=== PATIENT | male | born 1995 ===

== ENCOUNTER 2017-10-17 16:39 | Emergency (ER) | payer OTHER ==
[~2017-10-17] VITALS: Ht 177.8 cm; Wt 80.4 kg
[2017-10-17 16:41] VITALS: TEMP 37.1; Ht 177.8 cm; Wt 80.4 kg
[2017-10-17] MEDS ORDERED: KETOROLAC TROMETHAMINE 30 MG/ML VIAL IV STA (16:57)
[2017-10-17 17:25] LABS: BASO % 1.1 %; BASO ABS # 0.11 K/uL (0-0.2); EOS % 17.7 %; EOS ABS # 1.81 K/uL (0-0.5); HEMATOCRIT 43.8 % (42-52); HEMOGLOBIN 15.1 g/dL (14.0-18.0); IG# 0.02 K/uL (0.00-0.02); LYMPH % 27.7 %; LYMPH ABS # 2.84 K/uL (1.2-3.4); MEAN CELL VOLUME 85.9 fL (80-100); MEAN CORPUSCULAR HEMOGLOBIN 29.6 pg (25-34); MEAN CORPUSCULAR HGB CONC 34.5 g/dl (32-36); MEAN PLATELET VOLUME 9.4 fL (7.4-10.4); MONO ABS # 0.92 K/uL (0.11-0.59); NEUT % 44.3 %; NEUT ABS # 4.54 K/uL (1.4-6.5); PLATELET COUNT 303 K/uL (130-400); RED CELL DISTRIBUTION WIDTH CV 13.4 % (11.5-14.5); RED CELL DISTRIBUTION WIDTH SD 42.2 fL (36.4-46.3); WHITE BLOOD COUNT 10.24 K/uL (4.8-10.8)
--- NOTE | 2017-10-17 17:37 | DIAGNOSTIC IMAGING REPORT ---
CHEST ONE VIEW PORTABLE HISTORY: Atypical Chest Pain COMPARISON: None. FINDINGS: The lungs are clear. The heart is normal in size. No pleural effusions. No pneumothorax. Borderline elevation of the right hemidiaphragm. IMPRESSION: Borderline elevation of the right hemidiaphragm. Otherwise, no acute process within the chest. Electronically signed by: Jose Alston M.D. 10/17/2017 5:36 PM Dictated Date/Time: 10/17/2017 5:35 PM
[2017-10-17 17:41] LABS: BLOOD UREA NITROGEN 11 mg/dl (7-18); CALCIUM 8.6 mg/dl (8.5-10.1); CARBON DIOXIDE 27 mmol/L (21-32); CREATININE 1.04 mg/dl (0.60-1.40); GLUCOSE 90 mg/dl (70-99); SODIUM 139 mmol/L (136-145)
[2017-10-17] MEDS ORDERED: DUPI300I INJ (18:00)
[2017-10-17 18:31] VITALS: BP 110/73; PULSE 68; O2SAT 96
--- NOTE | 2017-10-17 21:45 | EMERGENCY ROOM VISIT NOTE ---
History Report prepared by Scribe: Mihaela Curran Under the Supervision of: Dr. Perez Mike D.O. First contact with patient: 16:43 Chief Complaint: CARDIAC ASSESSMENT Stated Complaint: HEAVY CHEST History of Present Illness The patient is a 22 year old male who presents to the Emergency Room with complaints of persistent chest pain. He states his chest has felt "heavy" since yesterday. Nothing seems to make it better or worse. Exertion has not worsened his symptoms. He admits to a history of asthma and is a current smoker. No arm or jaw pain. No nausea. Patient denies diabetes, hypertension, hyperlipidemia , CAD, history of sudden at a young age, swelling of calves, recent trips , history of immobilization or recent surgery, prior history of DVT, hemoptysis or history of malignancy. The patient also denies any headache, change in vision , fevers, cough, shortness of breath, nausea, vomiting, diarrhea, pain with urination, and melena. Source of History: patient Onset: yesterday Position: chest Quality: other ("heaviness") Timing: other (persistent) Associated Symptoms: No fevers, No headache, No cough, No SOB, No nausea, No vomiting, No melena, No diarrhea, No urinary symptoms Review of Systems See HPI for pertinent positives & negatives. A total of 10 systems reviewed and were otherwise negative. Past Medical & Surgical Medical Problems: (1) Asthma Social History Smoking Status: Current Every Day Smoker Alcohol Use: occasionally Drug Use: none Marital Status: single Housing Status: lives with roommate Occupation Status: [employer] Current/Historical Medications Scheduled Dupilumab (Dupixent), 1 DOSE INJ 2XWK Allergies Coded Allergies: No Known Allergies (Unverified , 10/17/17) Physical Exam Vital Signs Date Time Temp Pulse Resp B/P (MAP) Pulse Ox O2 Delivery O2 Flow Rate FiO2 10/17/17 18:31 68 18 110/73 96 Room Air 10/17/17 17:29 72 10/17/17 17:13 96 Room Air 10/17/17 16:41 37.1 83 17 128/82 97 Room Air Physical Exam GENERAL: Sitting up in bed, alert, well appearing, well nourished, no distress, non-toxic EYE EXAM: normal conjunctiva. OROPHARYNX: no exudate, no erythema, lips, buccal mucosa, and tongue normal and mucous membranes are moist NECK: supple, no nuchal rigidity, no adenopathy, non-tender LUNGS: Clear to auscultation. Normal chest wall mechanics HEART: no murmurs, S1 normal and S2 normal ABDOMEN: abdomen soft, non-tender, normo-active bowel sounds, no masses, no rebound or guarding. BACK: Back is symmetrical on inspection and there is no deformity, no midline tenderness, no CVA tenderness. SKIN: no rashes and no bruising UPPER EXTREMITIES: Radial pulse equal bilaterally. LOWER EXTREMITIES: Calves are equal bilaterally. No pitting edema. NEURO EXAM: Normal sensorium, cranial nerves II-XII grossly intact, normal speech, no gross weakness of arms, no gross weakness of legs. Gross sensation intact. Medical Decision & Procedures ER Provider Diagnostic Interpretation: Radiology results as stated below per my review and the radiologist's interpretation: CHEST ONE VIEW PORTABLE HISTORY: Atypical Chest Pain COMPARISON: None. FINDINGS: The lungs are clear. The heart is normal in size. No pleural effusions. No pneumothorax. Borderline elevation of the right hemidiaphragm. IMPRESSION: Borderline elevation of the right hemidiaphragm. Otherwise, no acute process within the chest. Electronically signed by: Jose Alston M.D. 10/17/2017 5:36 PM Laboratory Results 10/17/17 17:15 Red Blood Count 5.10, Mean Corpuscular Volume 85.9, Mean Corpuscular Hemoglobin 29.6, Mean Corpuscular Hemoglobin Concent 34.5, Mean Platelet Volume 9.4, Neutrophils (%) (Auto) 44.3, Lymphocytes (%) (Auto) 27.7, Monocytes (%) (Auto) 9.0, Eosinophils (%) (Auto) 17.7, Basophils (%) (Auto) 1.1, Neutrophils # (Auto ) 4.54, Lymphocytes # (Auto) 2.84, Monocytes # (Auto) 0.92, Eosinophils # (Auto ) 1.81, Basophils # (Auto) 0.11 10/17/17 17:15 Test 10/17/17 17:15 10/17/17 17:56 White Blood Count 10.24 K/uL (4.8-10.8) Red Blood Count 5.10 M/uL (4.7-6.1) Hemoglobin 15.1 g/dL (14.0-18.0) Hematocrit 43.8 % (42-52) Mean Corpuscular Volume 85.9 fL (80-100) Mean Corpuscular Hemoglobin 29.6 pg (25-34) Mean Corpuscular Hemoglobin Concent 34.5 g/dl (32-36) Platelet Count 303 K/uL (130-400) Mean Platelet Volume 9.4 fL (7.4-10.4) Neutrophils (%) (Auto) 44.3 % Lymphocytes (%) (Auto) 27.7 % Monocytes (%) (Auto) 9.0 % Eosinophils (%) (Auto) 17.7 % Basophils (%) (Auto) 1.1 % Neutrophils # (Auto) 4.54 K/uL (1.4-6.5) Lymphocytes # (Auto) 2.84 K/uL (1.2-3.4) Monocytes # (Auto) 0.92 K/uL (0.11-0.59) Eosinophils # (Auto) 1.81 K/uL (0-0.5) Basophils # (Auto) 0.11 K/uL (0-0.2) RDW Standard Deviation 42.2 fL (36.4-46.3) RDW Coefficient of Variation 13.4 % (11.5-14.5) Immature Granulocyte % (Auto) 0.2 % Immature Granulocyte # (Auto) 0.02 K/uL (0.00-0.02) Anion Gap 7.0 mmol/L (3-11) Est Creatinine Clear Calc Drug Dose 115.0 ml/min Estimated GFR () 117.6 Estimated GFR (Non- 101.4 BUN/Creatinine Ratio 10.6 (10-20) Calcium Level 8.6 mg/dl (8.5-10.1) Troponin I < 0.015 ng/ml (0-0.045) D-Dimer < 190 ug/L FEU (0-500) Laboratory results per my review. Medications Administered Medications (Trade) Dose Ordered Sig/Buthc Route Start Time Stop Time Status Last Admin Dose Admin Ketorolac Tromethamine (Toradol Inj) 30 mg NOW STAT IV 10/17/17 16:57 10/17/17 16:58 DC 10/17/17 17:12 30 MG ECG Per My Interpretation Indication: chest pain Rate (beats per minute): 69 Rhythm: normal sinus Findings: no ectopy, other (normal axis) ED Course ED COURSE: Vital signs were reviewed and showed normal vital signs. The patients medical record was reviewed The above diagnostic studies were performed and reviewed. ED treatments and interventions as stated above. 165: The patient was evaluated in room C6. A complete history and physical examination was performed. 165: Toradol 30 mg IV. 1849: Upon reevaluation, the patient is felling well and resting. I discussed my findings with the patient and he understands and agrees with the treatment plan. Based on the patients age, coexisting illnesses, exam and lab findings the decision to treat as an outpatient was made. The patient remained stable while under my care. The patient appeared well at the time of discharge. Medical Decision Differential diagnoses includes but is not limited to acute coronary syndrome, myocardial infarction, pericarditis, pulmonary embolus, aortic dissection, pneumonia, pneumothorax, musculoskeletal, shingles, esophageal. Patient is a 22-year-old male who presents the ER for chest pain which is been present since yesterday. No exacerbating or remitting factors. No cardiac or PE risk factors with the exception of a smoker. CBC along with BMP, troponin and d-dimer were negative with pain present greater than 8 hours. EKG unremarkable. Chest x-ray unremarkable. Patient was updated at bedside. He was discharged follow-up with PCP as an outpatient. I do not believe that this is cardiac in nature. Radial pulses were normal and chest x-ray unremarkable not suggesting dissection. Low risk for PE. Discussed with Pt concerning signs and symptoms to watch out for. Pt was instructed to follow up with their PCP and discussed with the patient their option to return to the ED at anytime for persistent or worsening symptoms. The appropriate anticipatory guidance and out- patient management, including indications for return to the emergency department , were explained at length to the patient and understood. Medication Reconcilliation Current Medication List: was personally reviewed by me Blood Pressure Screening Patient's blood pressure: Normal blood pressure Blood pressure disposition: Did not require urgent referral Impression Primary Impression: Chest pain Scribe Attestation The scribe's documentation has been prepared under my direction and personally reviewed by me in its entirety. I confirm that the note above accurately reflects all work, treatment, procedures, and medical decision making performed by me. Departure Information Dispostion Home / Self-Care Referrals No Doctor, Assigned (PCP) Patient Instructions Chest Pain - [facility], [facility] Additional Instructions Please follow up with your primary care doctor with in the next 24 hours. Any worsening of your symptoms, please return to the ED immediately. This includes any fevers greater than 100.4, worsening pain, chest pain, shortness breath, persistent nausea, vomiting, unable to eat or drink, or any other concerning signs or symptoms from your standpoint. Please take Tylenol or Motrin as needed for pain. Problem Qualifiers Primary Impression: Chest pain Chest pain type: unspecified Qualified Codes: R07.9 - Chest pain, unspecified
== END 2017-10-17 18:53 | disposition home or self-care (01) ==
LOC: C.EDB 16:40 → C.EDC 18:53
DX: R07.9 Chest pain, unspecified (principal); F17.200 Nicotine dependence, unspecified, uncomplicated; J45.909 Unspecified asthma, uncomplicated

== ENCOUNTER 2017-11-27 12:32 | Emergency (ER) | payer OTHER ==
[~2017-11-27] VITALS: Ht 175.3 cm; Wt 80.1 kg
[~2017-11-27 12:32] MED LIST: DUPI300I INJ
[2017-11-27 12:36] VITALS: TEMP 36.9; Ht 175.3 cm; Wt 80.1 kg
--- NOTE | 2017-11-27 13:16 | EMERGENCY ROOM VISIT NOTE ---
History Report prepared by Oneyda: Dexter Thomason Under the Supervision of: Dr. Santana Cervantes M.D. First contact with patient: 12:45 Chief Complaint: CARDIAC ASSESSMENT Stated Complaint: WEIRD FEELING IN CHEST History of Present Illness The patient is a 22 year old male who presents to the Emergency Room with complaints of intermittent right sided chest discomfort beginning a few weeks ago. The patient states he was evaluated in the ED a few weeks ago. He reports he is experiencing similar symptoms to before. The patient notes he had scans that were negative, and he was told his heart was okay. He states since then, it has been more frequent. The patient reports he has not been evaluated by his PCP yet. He notes he occasionally smokes cigarettes, and he last smoked marijuana yesterday. The patient denies cough, recent travel, coughing up blood , fevers, taking steroids, and cocaine use. He notes a history of asthma and eczema. Source of History: patient Onset: a few weeks ago Position: chest (right) Timing: intermittent Associated Symptoms: No cough Note: Denies: recent travel, coughing up blood, fevers, taking steroids, and cocaine use Review of Systems See HPI for pertinent positives and negatives. A total of ten systems were reviewed and were otherwise negative. Past Medical & Surgical Medical Problems: (1) Asthma (2) Eczema Family History Patient reports no known family medical history. Social History Smoking Status: Current Some Day Smoker Alcohol Use: occasionally Drug Use: marijuana Marital Status: single Housing Status: lives with roommate Occupation Status: [employer] student Current/Historical Medications Scheduled Dupilumab (Dupixent), 1 DOSE INJ 2XWK Allergies Coded Allergies: No Known Allergies (Unverified , 11/27/17) Physical Exam Vital Signs Date Time Temp Pulse Resp B/P (MAP) Pulse Ox O2 Delivery O2 Flow Rate FiO2 11/27/17 13:42 63 18 118/65 94 Room Air 11/27/17 12:36 36.9 79 18 115/77 96 Room Air Physical Exam Physical Exam GENERAL: He is oriented to person, place, and time. He appears well-developed and well-nourished. He does not appear distressed. ____ HENT: Exam performed. Head: Normocephalic and atraumatic. Right Ear: External ear normal. No mastoid tenderness. Left Ear: External ear normal. No mastoid tenderness. Mouth/Throat: The oropharynx is clear and moist. No trismus in the jaw. No dental abscesses or uvula swelling. No oropharyngeal exudate or tonsillar abscesses. ____ EYES: Conjunctivae and EOM are normal. Pupils are equal, round, and reactive to light. Right eye exhibits no discharge. Left eye exhibits no discharge. No scleral icterus. ____ NECK: Normal range of motion. Neck supple. No JVD present. No spinous process tenderness present. No carotid bruit present. No rigidity. No tracheal deviation and normal range of motion present. No Brudzinski's sign and no Kernig 's sign noted. ____ CV: Normal rate, regular rhythm, normal heart sounds and intact distal pulses. There is no peripheral edema. Palpable radial pulses bue. ____ PULM/CHEST: Effort normal and breath sounds normal. No respiratory distress. No stridor. He has no wheezes. He has no rales. Chest Wall: He exhibits no tenderness. ____ ABD: The abdomen is soft. Bowel sounds are normal. He has no distension. No mass is present. There is no tenderness. There is no rebound, no guarding, no Kline's sign and no tenderness at McBurney's point. Rovsig negative MUSC/SKEL: Normal range of motion. There is no peripheral edema, tenderness or deformity. LYMPH: No cervical adenopathy. ____ NEURO: He is alert and oriented to person, place, and time. He has normal strength. No cranial nerve deficit or sensory deficit. Coordination and gait normal. GCS eye subscore is 4. GCS verbal subscore is 5. GCS motor subscore is 6. Cerebellar tests wnl. ____ SKIN: Skin is warm and dry. He is not diaphoretic. ____ PSYCH: He has a normal mood and affect. His behavior is normal. Judgment and thought content normal. ____ Medical Decision & Procedures ER Provider Diagnostic Interpretation: X-ray: Per my interpretation, radiologist review. TWO VIEW CHEST CLINICAL HISTORY: Right-sided chest pain. FINDINGS: PA and lateral chest radiographs are compared to study dated 10/17/2017. The cardiomediastinal silhouette is unremarkable. The lungs and pleural spaces are clear. There is no pneumothorax. The bony thorax appears intact. IMPRESSION: No active disease in the chest. Electronically signed by: Moy Brenner M.D. 11/27/2017 1:42 PM Dictated Date/Time: 11/27/2017 1:42 PM ECG Per My Interpretation Indication: chest pain Rate (beats per minute): 70 Rhythm: sinus with SA Findings: other (SC, QRS, and QTc are wnl. No ST depression or elevation.) ED Course 1313: The patient was evaluated in room B06. A complete history and physical exam was performed. Review of EMR shows the patient was evaluated on October 16 and had a negative chest x-ray. 1357: I reevaluated the patient. EKG and chest x-ray was negative. Repeat exam was negative. I advised him to stop smoking. DISCHARGE - Plan of care discussed with patient and questions answered. The patient was given both verbal and printed discharge instructions. The patient verbalized understanding and ability to comply. The patient is to seek outpatient follow up as noted in the discharge instructions. The patient verbalized understanding and ability to comply. The patient is discharged in stable condition. The patient was instructed to return for worsening symptoms. Medical Decision EKG and chest x-ray was negative. Repeat exam was negative. I advised him to stop smoking. DISCHARGE - Plan of care discussed with patient and questions answered. The patient was given both verbal and printed discharge instructions. The patient verbalized understanding and ability to comply. The patient is to seek outpatient follow up as noted in the discharge instructions. The patient verbalized understanding and ability to comply. The patient is discharged in stable condition. The patient was instructed to return for worsening symptoms. Medication Reconcilliation Current Medication List: was personally reviewed by me Blood Pressure Screening Patient's blood pressure: Normal blood pressure Blood pressure disposition: Did not require urgent referral Impression Primary Impression: Chest pain Additional Impression: Tobacco abuse Scribe Attestation The scribe's documentation has been prepared under my direction and personally reviewed by me in its entirety. I confirm that the note above accurately reflects all work, treatment, procedures, and medical decision making performed by me. The chart was completed utilizing [employer] voice recognition software. Grammatical errors, random word insertions, pronoun errors, and incomplete sentences are an occasional consequence of this system due to software limitations, ambient noise, and hardware issues. Any formal questions or concerns about the content, text, or information contained within the body of this dictation should be directly addressed to the physician for clarification. Departure Information Dispostion Home / Self-Care Referrals No Doctor, Assigned (PCP) Forms IMPORTANT VISIT INFORMATION Patient Instructions Chest Pain - [facility], ED Smoking Cessation, [facility] Health Problem Qualifiers Primary Impression: Chest pain Chest pain type: unspecified Qualified Codes: R07.9 - Chest pain, unspecified
[2017-11-27 13:42] VITALS: BP 118/65; PULSE 63; O2SAT 94
--- NOTE | 2017-11-27 13:44 | DIAGNOSTIC IMAGING REPORT ---
TWO VIEW CHEST CLINICAL HISTORY: Right-sided chest pain. FINDINGS: PA and lateral chest radiographs are compared to study dated 10/17/2017. The cardiomediastinal silhouette is unremarkable. The lungs and pleural spaces are clear. There is no pneumothorax. The bony thorax appears intact. IMPRESSION: No active disease in the chest. Electronically signed by: Moy Brenner M.D. 11/27/2017 1:42 PM Dictated Date/Time: 11/27/2017 1:42 PM
== END 2017-11-27 14:05 | disposition home or self-care (01) ==
LOC: C.EDB 12:33
DX: R07.9 Chest pain, unspecified (principal); F17.200 Nicotine dependence, unspecified, uncomplicated; J45.909 Unspecified asthma, uncomplicated; F12.90 Cannabis use, unspecified, uncomplicated